=== PATIENT | male | born 1980 | race Caucasian/White ===

== ENCOUNTER → 2022-07-01 11:03 | Outpatient (CLI) | payer OTHER, SELFPAY ==
[2022-07-01 13:17] LABS: COVID19 -Nasal RAPID Negative (Negative)
== END ==
PROVIDERS: Visit Provider Surgery
DX: Z20.822 Contact with and (suspected) exposure to COVID-19 (principal); Z01.812 Encounter for preprocedural laboratory examination
CPT/HCPCS: 87635; C9803

== ENCOUNTER 2022-07-04 10:33 | Day surgery (SDC) | payer OTHER, SELFPAY ==
--- NOTE | 2022-07-04 | PATH_ITS ---
[facility] Accession Number: [id number] . 01 Material submitted: . PART A: gastrointestinal site - ANTRUM BIOPSY PART B: gastrointestinal site - GASTRIC POLYP PART C: esophagus, E-G Junction - GE JUNCTION BIOPSY PART D: esophagus - MID ESOPHAGUS BIOPSY . 01 Clinical history: . EGD W/POSS BX / BILATION . 01 Diagnosis: A. Stomach, Antrum, Biopsy: Antral mucosa with mild chronic gastritis. Negative for Helicobacter by immunohistochemistry. Negative for intestinal metaplasia. Negative for dysplasia and malignancy. . B. Stomach, Polyp, Biopsy: Body-type mucosa with rare dilated glands consistent with fundic gland polyp. Additional levels were examined. No evidence of Helicobacter on H/E stain. Negative for intestinal metaplasia. Negative for dysplasia and malignancy. . C. Gastroesophageal Junction, Biopsy: Squamous epithelium with no diagnostic abnormality. Negative for intestinal metaplasia. Negative for dysplasia and malignancy. . D. Mid Esophagus, Biopsy: Squamous epithelium with no diagnostic abnormality. Intraepithelial eosinophils are not increased. Negative for dysplasia and malignancy. [facility] 07/07/2022 1743 Local . 01 Electronically signed: . Karlie Ponce MD, Pathologist NPI- [id number] . 01 Gross description: . Part A: ANTRUM BIOPSY: Received in formalin are 2 fragment(s) of munoz, soft tissue measuring 0.3 x 0.1 x 0.1 cm to 0.2 x 0.1 x 0.1 cm submitted entirely in 1 cassette(s) Part B: GASTRIC POLYP: Received in formalin are 2 fragment(s) of munoz, soft tissue measuring 0.2 x 0.2 x 0.1 cm to 0.2 x 0.1 x 0.1 cm submitted entirely in 1 cassette(s) Part C: GE JUNCTION BIOPSY: Received in formalin are 2 fragment(s) of munoz, soft tissue measuring 0.4 x 0.2 x 0.1 cm to 0.2 x 0.1 x 0.1 cm submitted entirely in 1 cassette(s) Part D: MID ESOPHAGUS BIOPSY: Received in formalin are 3 fragment(s) of munoz, soft tissue measuring 0.4 x 0.2 x 0.1 cm to 0.1 x 0.1 x 0.1 cm submitted entirely in 1 cassette(s) /CPE 07/05/2022 0543 Local . 01 Microscopic: . A. An immunohistochemical stain was performed to evaluate for Helicobacter organisms and is negative. The control stain showed appropriate reactivity. . B. Additional levels were examined. . * This test was developed and its performance characteristics determined by [facility]. It has not been cleared or approved by the U.S. Food and Drug Administration. The FDA has determined that such clearance or approval is not necessary. This test is used for clinical purposes. It should not be regarded as investigational or for research. . 01 Pathologist provided ICD-10: R13.14 . 01 CPT . 458886, 449812, 626582, 860348, R85512 Specimen Comment: A courtesy copy of this report has been sent to [phone] Performed at: 01 [facility] [address] [place] [address], [place], [place] [id number] MD Gopi Johnson MD Phone: [phone]
[2022-07-04 11:08] VITALS: BP 120/78; PULSE 65; RESP 16; TEMP 36.6; O2SAT 98; BMI 27.0
[2022-07-04] MEDS: SODIUM CHLORIDE 0.9% 1,000 ML 84 ML IV (11:35)
--- NOTE | 2022-07-04 13:11 | PM.HP.1 ---
History of Present Illness History of Present Illness Date Patient Seen: 07/04/22 Time Patient Seen: 13:11 Chief complaint: EGD W/POSS BX & DILATION Narrative: I reviewed the recent note from Dr. Stein no significant changes. Patient History Medical History Asthma Elevated liver enzymes (~03/2022) Surgical History [place] teeth removed Family & Social History Social History: household members spouse Tobacco & Substance use: Smoking Status Never smoker alcohol intake former Substance Use Type does not use Meds Home Medications and Allergies Home Medications Medication Instructions Recorded Confirmed Type albuterol 90 mcg/actuation aerosol See Rx Instructions .Route 07/04/22 07/04/22 History inhaler .COMPLEX breathing Allergies Allergy/AdvReac Type Severity Reaction Status Date / Time metaproterenol [From Alupent] AdvReac Intermediate Rash Verified 07/04/22 11:02 Review of Systems Review of Systems ROS: Yes All systems reviewed with the patient and are negative except as otherwise documented Exam Vital Signs (past 8 hours): - 07/04/22 11:08 Temperature 98 F Pulse Rate 65 Respiratory Rate 16 Blood Pressure 120/78 Pulse Oximetry 98 Oxygen Delivery Method Room Air Oxygen Delivery Method Room Air Const General: cooperative HENMT Head: normal to inspection Eyes General: appearance normal, both eyes and all related structures Neck Neck: normal visual inspection Chest Chest: normal inspection of the chest Resp Effort & Inspection: normal respiratory effort Cardio Rate: regular rate GI Inspection: normal to inspection Skin General: no rashes or lesions noted Neuro General: patient alert and patient awake Extrem General: normal to inspection and no pedal edema Psych Appearance: grossly normal Assessment & Plan Assessment & Plan narrative: 41-year-old male with intermittent dysphagia. EGD is pursued today. Time Spent With Patient Critical Care time: I spent a total of [] minutes of critical care time on this patient's care today; this time is exclusive of procedural time.
--- NOTE | 2022-07-04 13:12 | PM.PREOP ---
Pre-operative Note COVID-19 COVID-19 status: Negative Result date/Date tested (Pos, Neg/Pending): 07/01/22 Criteria for continued procedure: Possibility delay results in more complex future surgery or treatment Interval Note History & Physical reviewed/Exam performed by Physician: Yes Changes to H&P: No ASA Class (for procedural sedation): I
[2022-07-04 13:45] VITALS: BP 106/60; PULSE 75; RESP 14; TEMP 36.5; O2SAT 95
--- NOTE | 2022-07-04 13:45 | PM.OP.EGD ---
Operative Date/Time/Diagnoses Date of procedure: 07/04/22 Time of procedure: 13:45 Pre-op diagnosis: Dysphagia Post-op diagnosis: same Procedure & Clinicians Study performed: EGD with biopsies Same procedure as scheduled: Yes Indications: Dysphagia Surgeon: Brandon Davis Procedure Notes SCOAP/Timeout: Done Procedure in detail: After the risks and benefits were explained, written and verbal informed consent was obtained. The patient was brought into the procedure room and placed into the left lateral decubitus position. Conscious sedation medication was applied as per nursing documentation. The scope was introduced into the mouth through the bite block and advanced under direct visualization to the 2nd portion of the duodenum. The scope was slowly withdrawn carefully examining the mucosa for any defects or lesions. Retroflexed views were accomplished in the stomach. The stomach was decompressed, the scope was then removed from the patient who tolerated the procedure well. Sedation minutes: 13 Complications: none Impression: 1. Duodenum: No significant pathology identified from the bulb through to the 2nd portion. 2. Stomach: Diffuse mild gastropathy was appreciated. Biopsies were taken from the antrum for exclusion of Helicobacter or other pathology. Retroflexed views of the LES were unremarkable with the exception of a small sliding hiatal hernia. There was a diminutive polyp in the gastric body that was addressed with cold forceps. 3. Esophagus: The squamocolumnar junction correlated with the top of the gastric folds. GEJ was at approximately 35 cm from the incisors. There was evidence of LA grade a erosive esophagitis and a subtle nonobstructing Schatzki's ring. Disruptive biopsies were taken from the Schatzki's ring x2 and submitted for histopathology. Otherwise midesophageal biopsies were then taken for exclusion of eosinophilic infiltration. There were no linear furrows. There was evidence of some subtle circumferential folds evident in the mid esophagus. Endoscopic diagnosis 1. Gastropathy 2. Gastric polyps 3. Small sliding hiatal hernia 4. LA grade B erosive esophagitis 5. Nonobstructing Schatzki's ring 6. Subtle mid esophageal circumferential folds Post-procedure Plan for aftercare: 1. Await histopathology. 2. Initiate [id number] omeprazole 20 mg once daily. 3. Follow up GI clinic in 8 weeks to review response to therapy. Disposition: PACU
[2022-07-04 13:50] VITALS: BP 109/68; PULSE 65; RESP 14; O2SAT 95
[2022-07-04 14:00] VITALS: BP 107/70; PULSE 67; RESP 16; TEMP 36.6; O2SAT 95
[2022-07-04 14:04] VITALS: BP 107/68; PULSE 68; RESP 16
== END 2022-07-04 14:10 | disposition home or self-care (01) ==
PROVIDERS: PCP Family Medicine; Referring Provider Internal Medicine Gastroenterology; Visit Provider Internal Medicine Gastroenterology
PROC: 0DJ08ZZ Inspection of Upper Intestinal Tract, Via Natural or Artificial Opening Endoscopic (ICD-10-PCS; CPT 43235; principal; 2022-07-04 13:30)
DX: K29.50 Unspecified chronic gastritis without bleeding (principal); K31.7 Polyp of stomach and duodenum; K20.80 Other esophagitis without bleeding; K22.2 Esophageal obstruction; K44.9 Diaphragmatic hernia without obstruction or gangrene; R13.14 Dysphagia, pharyngoesophageal phase; R79.89 Other specified abnormal findings of blood chemistry; K76.0 Fatty (change of) liver, not elsewhere classified; J45.909 Unspecified asthma, uncomplicated
CPT/HCPCS: 43239; J2704; J3010